=== PATIENT | male | born 1980 | race Caucasian/White ===

== ENCOUNTER → 2016-06-28 | Outpatient (CLI) | payer OTHER ==
--- NOTE | 2016-06-28 14:03 | DI ---
RIGHT WRIST, 06/28/2016 10:14 AM: Clinical History: Right wrist pain. Previous Exam: None at this facility. 3 views are submitted. There is no acute soft tissue, osseous, or joint abnormality. Reading: Normal right wrist exam.
== END ==
LOC: MOB RAD 10:15
PROVIDERS: ATTEND Physician Assistant
DX: M25.531 Pain in right wrist (principal); W22.8XXA Striking against or struck by other objects, initial encounter
CPT/HCPCS: 73110

== ENCOUNTER → 2016-07-04 | Outpatient (CLI) | payer SELFPAY ==
[2016-07-04 11:07] LABS: HEMATOCRIT 47.3 % (42.0-52.0); MEAN CORPUSCULAR HEMOGLOBIN 29.6 PG (27-31); MEAN CORPUSCULAR HGB CONC 35.9 g/dL (33-37); RED BLOOD COUNT 5.75 10^6/uL (4.70-6.10)
[2016-07-04 11:19] LABS: BLOOD UREA NITROGEN 18 mg/dL (7-22); CALCIUM 9.5 mg/dL (8.7-10.7); EST GLOMERULAR FILTRATION > 60 (>60 ml/min/1.73m(2)); SERUM ALBUMIN 4.8 g/dL (3.5-4.8)
[2016-07-04 11:20] LABS: HDL CHOLESTEROL 45 mg/dL (40-150); SERUM CHOLESTEROL 207 mg/dL (120-200)
== END ==
LOC: MOB LAB 09:51
PROVIDERS: ATTEND Family Medicine
DX: I10 Essential (primary) hypertension (principal); F17.220 Nicotine dependence, chewing tobacco, uncomplicated
CPT/HCPCS: 36415; 80053; 80061; 84443; 85027